=== PATIENT | female | born 1965 | race Caucasian/White ===

== ENCOUNTER 2020-01-29 15:26 | Emergency (ER) | payer BC | END 2020-01-29 18:08 | disposition home or self-care (01) | LOC: JVIRT 15:26 | DX: Z03.818 Encounter for observation for suspected exposure to other biological agents ruled out (principal) | CPT/HCPCS: C9803; G2012-GT; U0003 ==

== ENCOUNTER 2020-02-22 12:28 | Emergency (ER) | payer BC | END 2020-02-22 13:44 | disposition home or self-care (01) | LOC: JVIRT 12:28 | DX: R51.9 Headache, unspecified (principal); Z20.828 Contact with and (suspected) exposure to other viral communicable diseases | CPT/HCPCS: C9803; G2012-GT; Q3014-GT; U0003 ==